=== PATIENT | female | born 2000 | race Caucasian/White ===

== ENCOUNTER → 2021-02-21 16:55 | Outpatient (CLI) | payer OTHER, MEDICAID, SELFPAY ==
[2021-02-21] MEDS: COVID-19 VACC #1, MRNA(MOD) 100 MCG/0.5 ML VIAL IM (17:02)
== END ==
PROVIDERS: Visit Provider Internal Medicine
DX: Z23 Encounter for immunization (principal)
CPT/HCPCS: 0011A; 91301

== ENCOUNTER → 2021-03-22 15:26 | Outpatient (CLI) | payer OTHER, MEDICAID, SELFPAY ==
[2021-03-22] MEDS: COVID-19 VACC #2, MRNA(MOD) 100 MCG/0.5 ML VIAL IM (15:31)
== END ==
PROVIDERS: Visit Provider Internal Medicine
DX: Z23 Encounter for immunization (principal)
CPT/HCPCS: 0012A; 91301